=== PATIENT | female | born 1975 | race Caucasian/White ===

== ENCOUNTER 2024-05-05 14:20 | Emergency (ER) | payer OTHER ==
[~2024-05-05] VITALS: Ht 162.6 cm; Wt 74.8 kg
[2024-05-05 14:20] VITALS: BP_SYST 118; PULSE 107; RESP 19; TEMP 97.7; O2SAT 98
[2024-05-05] MEDS: KETOROLAC TROMETHAMINE 30 MG VIAL IM ONE (15:41)
[2024-05-05] MEDS ORDERED: DICL50TA9 PO (17:23)
[2024-05-05 17:38] VITALS: BP_SYST 118; PULSE 107; RESP 19; TEMP 97.7; O2SAT 98
== END 2024-05-05 17:39 | disposition home or self-care (01) ==
LOC: SED 14:20
DX: S62.122A Displaced fracture of lunate [semilunar], left wrist, initial encounter for closed fracture (principal); M79.642 Pain in left hand; X58.XXXA Exposure to other specified factors, initial encounter; Y93.89 Activity, other specified; Y92.89 Other specified places as the place of occurrence of the external cause; Y99.8 Other external cause status
CPT/HCPCS: 99285; 93971; 73110; 73130; 29125; 96372; J1885